=== PATIENT | female | born 1990 | race Caucasian/White ===

== ENCOUNTER 2019-02-28 17:27 | Emergency (ER) | payer OTHER, MEDICAID ==
[~2019-02-28] VITALS: Ht 175.3 cm; Wt 77.1 kg
--- NOTE | 2019-02-28 18:00 | NUR ---
Patient triaged and placed in waiting room. VSS and patient appears in no acute distress at this time. Accompanied by mother, awaiting available bed, and MD notified of need for MSE.
[2019-02-28 18:02] VITALS: BP_SYST 130
--- NOTE | 2019-02-28 18:10 | NUR ---
Wound care provided to right middle finger, cleaned with ns, and kerlix applied to hand. Pt tolerated well
--- NOTE | 2019-02-28 18:10 | NUR ---
ER MITZI Mina examining patient.
[2019-02-28 18:36] VITALS: BP_SYST 115
== END 2019-02-28 18:36 | disposition home or self-care (01) ==
LOC: SED 17:27
DX: S61.212A Laceration without foreign body of right middle finger without damage to nail, initial encounter (principal); R03.0 Elevated blood-pressure reading, without diagnosis of hypertension; Z88.5 Allergy status to narcotic agent; Z88.8 Allergy status to other drugs, medicaments and biological substances; W45.8XXA Other foreign body or object entering through skin, initial encounter; Y93.89 Activity, other specified; Y92.89 Other specified places as the place of occurrence of the external cause; Y99.8 Other external cause status
CPT/HCPCS: 99283